=== PATIENT | female | born 1935 | race Caucasian/White ===

== ENCOUNTER 2018-10-15 14:30 | Emergency (ER) | payer MEDICARE ==
[~2018-10-15] VITALS: Ht 158.8 cm; Wt 79.0 kg
[~2018-10-15 14:30] MED LIST: ASA LO-DOSE81 MG OR; DEBROX6.5 % AS; DITROPAN PO; HYDROCHLOROT25 MG OR; LISINOP/HCTZ1 TA2 PO; MULTIVITAMI1 OR; TENORMIN25 MG OR; allo PO
[2018-10-15 15:17] LABS: HEMATOCRIT 37.9 % (37.0-47.0); HEMOGLOBIN 12.5 g/dl (12.0-16.0); IMMATURE GRANULOCYTES 0.3 % (0.0-5.0); MEAN CELL VOLUME 87.7 fL CALC (80.0-100.0); MEAN CORPUSCULAR HGB 28.9 pG CALC (26.0-32.0); NEUT# 9.92 thou/uL (2.00-7.15); RED BLOOD COUNT 4.32 mill/uL (4.20-5.60); RED CELL DISTRI WIDTH 14.4 % (11.5-15.5)
[2018-10-15 15:39] LABS: ALBUMIN 3.7 g/dL (3.2-5.0); ALKALINE PHOSPHATASE 84 u/l (38-126); ANION GAP 14 (6-22 (CALC)); BILIRUBIN, TOTAL 2.4 mg/dL (0.0-1.4); BUN 11 mg/dL (8-23); BUN/CREATININE RATIO 14 (12-20 (CALC)); CARBON DIOXIDE 25 mmol/l (22-30); CHLORIDE 104 mmol/l (95-108); CREATININE 0.8 mg/dL (0.5-1.0); GFR > 60 ML/MIN (>=60 (CALC)); GFR FOR AFR.AMER. > 60 ML/MIN (>=60 (CALC)); LIPASE 26 u/l (23-300); POTASSIUM 3.8 mmol/l (3.5-5.1); SGOT/AST 17 u/l (9-36); SODIUM 139 mmol/l (137-146); TOTAL PROTEIN 6.8 g/dL (6.3-8.2)
[2018-10-15 17:02] LABS: URINE BILIRUBIN - DIPSTICK NEGATIVE (NEGATIVE); URINE BLOOD DIPSTICK TRACE-INTACT (NEGATIVE); URINE COLOR YELLOW; URINE GLUCOSE - DIPSTICK NEGATIVE (NEGATIVE); URINE KETONE 40 mg/dL (NEGATIVE); URINE LEUK ESTERASE NEGATIVE (NEGATIVE); URINE NITRITE - DIPSTICK NEGATIVE (Negative); URINE PROTEIN - DIPSTICK TRACE mg/dL (NEG-TRACE); URINE SPECIFIC GRAVITY 1.025; URINE UROBILINOGEN - DIPSTICK 0.2 E.U./dL (0.2)
[2018-10-15] MEDS ORDERED: ONDANSETRON4 MG PO (17:38)
[2018-10-15 18:19] VITALS: BP 116/53
== END 2018-10-15 18:42 | disposition home or self-care (01) ==
LOC: ED 14:30
PROVIDERS: Family Medicine
DX: K52.9 Noninfective gastroenteritis and colitis, unspecified (principal); R10.13 Epigastric pain; R11.2 Nausea with vomiting, unspecified
CPT/HCPCS: Q9967

== ENCOUNTER 2018-10-21 14:21 | Observation (INO) | payer MEDICARE ==
[~2018-10-21] VITALS: Ht 160 cm; Wt 78.0 kg
[~2018-10-21 14:21] MED LIST changes: +ONDANSETRON4 MG PO
[2018-10-21 15:00] VITALS: BP 205/93
[2018-10-21 15:08] LABS: HEMATOCRIT 39.9 % (37.0-47.0); HEMOGLOBIN 13.1 g/dl (12.0-16.0); IMMATURE GRANULOCYTES 0.7 % (0.0-5.0); MEAN CELL VOLUME 86.9 fL CALC (80.0-100.0); MEAN CORPUSCULAR HGB 28.5 pG CALC (26.0-32.0); MEAN CORPUSCULAR HGB CONC 32.8 g/L CALC (32.0-36.0); NEUT# 10.58 thou/uL (2.00-7.15); RED BLOOD COUNT 4.59 mill/uL (4.20-5.60); RED CELL DISTRI WIDTH 14.2 % (11.5-15.5)
[2018-10-21 15:24] LABS: ANION GAP 15 (6-22 (CALC)); BUN 10 mg/dL (8-23); BUN/CREATININE RATIO 14 (12-20 (CALC)); CARBON DIOXIDE 26 mmol/l (22-30); CHLORIDE 100 mmol/l (95-108); CREATININE 0.7 mg/dL (0.5-1.0); GFR > 60 ML/MIN (>=60 (CALC)); GFR FOR AFR.AMER. > 60 ML/MIN (>=60 (CALC)); POTASSIUM 3.7 mmol/l (3.5-5.1); SODIUM 137 mmol/l (137-146)
[2018-10-21 16:09] VITALS: BP 164/65
[2018-10-21 17:05] VITALS: BP 138/75
[2018-10-21 18:36] VITALS: BP 147/77
[2018-10-21 19:23] VITALS: BP 111/60
[2018-10-21 21:38] LABS: URINE BILIRUBIN - DIPSTICK NEGATIVE (NEGATIVE); URINE BLOOD DIPSTICK TRACE-INTACT (NEGATIVE); URINE COLOR YELLOW; URINE GLUCOSE - DIPSTICK NEGATIVE (NEGATIVE); URINE KETONE NEGATIVE (NEGATIVE); URINE LEUK ESTERASE NEGATIVE (NEGATIVE); URINE NITRITE - DIPSTICK NEGATIVE (Negative); URINE PH 6.5 (4.5-8.0); URINE PROTEIN - DIPSTICK NEGATIVE (NEG-TRACE); URINE SPECIFIC GRAVITY <=1.005; URINE UROBILINOGEN - DIPSTICK 0.2 E.U./dL (0.2)
[2018-10-21 23:51] VITALS: BP 155/74
[2018-10-22] VITALS (7 sets, daily range): BP systolic 120–173; BP diastolic 43–84
[2018-10-22 02:43] LABS: HEMOGLOBIN 11.3 g/dl (12.0-16.0); IMMATURE GRANULOCYTES 0.7 % (0.0-5.0); MEAN CELL VOLUME 86.9 fL CALC (80.0-100.0); MEAN CORPUSCULAR HGB CONC 33.4 g/L CALC (32.0-36.0); NEUT# 9.88 thou/uL (2.00-7.15); RED BLOOD COUNT 3.89 mill/uL (4.20-5.60); RED CELL DISTRI WIDTH 14.4 % (11.5-15.5)
[2018-10-22 02:45] LABS: HEMATOCRIT 33.8 % (37.0-47.0)
[2018-10-22 02:57] LABS: ALKALINE PHOSPHATASE 116 u/l (38-126); ANION GAP 11 (6-22 (CALC)); BILIRUBIN, TOTAL 1.7 mg/dL (0.0-1.4); BUN 8 mg/dL (8-23); BUN/CREATININE RATIO 13 (12-20 (CALC)); CALCULATED LDLCHOLESTEROL 72 mg/dL (62-129 (CALC)); CARBON DIOXIDE 27 mmol/l (22-30); CHLORIDE 102 mmol/l (95-108); CHOLESTEROL HDL RATIO 3.7 (<4.4 (CALC)); CREATININE 0.6 mg/dL (0.5-1.0); GFR > 60 ML/MIN (>=60 (CALC)); GFR FOR AFR.AMER. > 60 ML/MIN (>=60 (CALC)); HDL CHOLESTEROL 32 mg/dL (>=40); POTASSIUM 3.8 mmol/l (3.5-5.1); SGOT/AST 29 u/l (9-36); SODIUM 136 mmol/l (137-146); TOTAL CHOLESTEROL 118 mg/dl (0-199); TOTAL PROTEIN 5.8 g/dL (6.3-8.2); TOTAL TRIGLYCERIDES 70 mg/dl (30-149); VLDL CHOLESTROL 14 mg/dl (0-48 (CALC))
[2018-10-22 03:01] LABS: ALBUMIN 2.8 g/dL (3.2-5.0)
[2018-10-23 04:30] VITALS: BP 156/82
[2018-10-23 07:00] LABS: HEMATOCRIT 35.7 % (37.0-47.0); HEMOGLOBIN 11.5 g/dl (12.0-16.0); IMMATURE GRANULOCYTES 0.7 % (0.0-5.0); MEAN CELL VOLUME 88.1 fL CALC (80.0-100.0); MEAN CORPUSCULAR HGB 28.4 pG CALC (26.0-32.0); MEAN CORPUSCULAR HGB CONC 32.2 g/L CALC (32.0-36.0); NEUT# 9.04 thou/uL (2.00-7.15); RED BLOOD COUNT 4.05 mill/uL (4.20-5.60); RED CELL DISTRI WIDTH 14.4 % (11.5-15.5)
[2018-10-23 07:15] LABS: ALBUMIN 2.6 g/dL (3.2-5.0); ALKALINE PHOSPHATASE 119 u/l (38-126); ANION GAP 7 (6-22 (CALC)); BILIRUBIN, TOTAL 1.1 mg/dL (0.0-1.4); BUN 6 mg/dL (8-23); BUN/CREATININE RATIO 8 (12-20 (CALC)); CARBON DIOXIDE 31 mmol/l (22-30); CHLORIDE 106 mmol/l (95-108); CREATININE 0.7 mg/dL (0.5-1.0); GFR > 60 ML/MIN (>=60 (CALC)); GFR FOR AFR.AMER. > 60 ML/MIN (>=60 (CALC)); POTASSIUM 3.4 mmol/l (3.5-5.1); SGOT/AST 15 u/l (9-36); SODIUM 140 mmol/l (137-146); TOTAL PROTEIN 5.5 g/dL (6.3-8.2)
[2018-10-23 07:51] VITALS: BP 159/69
[2018-10-23 11:20] VITALS: BP 175/92
[2018-10-23 15:25] VITALS: BP 137/47
[2018-10-23 19:08] VITALS: BP 151/78
[2018-10-24 00:12] VITALS: BP 146/72
[2018-10-24 04:25] VITALS: BP 143/81
[2018-10-24 08:17] VITALS: BP 172/71
[2018-10-24] MEDS ORDERED: LOPRESSOR25 MG PO (08:29)
[2018-10-24] MEDS ORDERED: LISINOPRIL20 M1 PO (08:29)
[2018-10-24 12:00] VITALS: BP 178/85
[2018-10-24 12:38] VITALS: BP 167/76
== END 2018-10-24 15:19 | disposition home or self-care (01) ==
LOC: MS2 14:21
PROVIDERS: ADMIT Internal Medicine Geriatric Medicine; ATTEND Internal Medicine Geriatric Medicine
DX: K57.32 Diverticulitis of large intestine without perforation or abscess without bleeding (principal); K50.10 Crohn's disease of large intestine without complications; K59.00 Constipation, unspecified; I10 Essential (primary) hypertension; I25.10 Atherosclerotic heart disease of native coronary artery without angina pectoris; K21.9 Gastro-esophageal reflux disease without esophagitis; Z96.642 Presence of left artificial hip joint; Z95.5 Presence of coronary angioplasty implant and graft; Z80.0 Family history of malignant neoplasm of digestive organs
CPT/HCPCS: Q9967

== ENCOUNTER → 2018-12-04 | Outpatient (REF) | payer MEDICARE ==
[~2018-12-04] VITALS: Ht 162.6 cm; Wt 79.4 kg
[~2018-12-04] MED LIST changes: +ASPIRIN EC325 MG PO; +B-12 TR1000 MCG PO; +D31000 UNI1 PO; +FISH OIL1000 M2 PO; +GAS RELIEF EXT125 MG PO; +GLUCOSAMINE CHO1 CA3 PO; +LISINOPRIL20 M1 PO; +LOPRESSOR25 MG PO; +NITROFURANTN100 MG PO; +SIMVASTATIN10 MG PO; +VITAMIN C1000 MG PO
[2018-12-04 11:39] VITALS: BP 142/68
== END | disposition home or self-care (01) ==
LOC: PO 10:57 → ORM 11:00
PROVIDERS: ATTEND Surgery
DX: Z01.818 Encounter for other preprocedural examination (principal); K29.80 Duodenitis without bleeding; K57.32 Diverticulitis of large intestine without perforation or abscess without bleeding; I25.10 Atherosclerotic heart disease of native coronary artery without angina pectoris; Z90.49 Acquired absence of other specified parts of digestive tract; Z96.652 Presence of left artificial knee joint; Z95.818 Presence of other cardiac implants and grafts; I69.354 Hemiplegia and hemiparesis following cerebral infarction affecting left non-dominant side; Z72.89 Other problems related to lifestyle

== ENCOUNTER 2018-12-11 08:33 | Day surgery (SDC) | payer MEDICARE ==
[~2018-12-11] VITALS: Ht 162.6 cm; Wt 79.4 kg
[2018-12-11 10:49] VITALS: BP 188/80
== END 2018-12-11 11:21 | disposition home or self-care (01) ==
LOC: ENDO 08:33 → ORM 11:15 → ENDO 11:21
PROVIDERS: ATTEND Surgery
PROC: 0DB68ZX Excision of Stomach, Via Natural or Artificial Opening Endoscopic, Diagnostic (ICD-10-PCS; principal; 2018-12-11)
PROC: 0DBL8ZX Excision of Transverse Colon, Via Natural or Artificial Opening Endoscopic, Diagnostic (ICD-10-PCS; 2018-12-11)
DX: K31.7 Polyp of stomach and duodenum (principal); K44.9 Diaphragmatic hernia without obstruction or gangrene; K63.5 Polyp of colon; K57.30 Diverticulosis of large intestine without perforation or abscess without bleeding; K64.4 Residual hemorrhoidal skin tags

== ENCOUNTER 2019-02-25 12:52 | Observation (INO) | payer MEDICARE ==
[~2019-02-25] VITALS: Ht 160 cm; Wt 77.0 kg
[2019-02-25 13:27] VITALS: BP 140/82
[2019-02-25 13:32] VITALS: BP 151/84
[2019-02-25 13:37] VITALS: BP 175/94
[2019-02-25 13:59] LABS: HEMATOCRIT 45.2 % (37.0-47.0); HEMOGLOBIN 14.3 g/dl (12.0-16.0); IMMATURE GRANULOCYTES 0.4 % (0.0-5.0); MEAN CELL VOLUME 90.9 fL CALC (80.0-100.0); MEAN CORPUSCULAR HGB 28.8 pG CALC (26.0-32.0); MEAN CORPUSCULAR HGB CONC 31.6 g/L CALC (32.0-36.0); NEUT# 5.7 thou/uL (2.00-7.15); RED BLOOD COUNT 4.97 mill/uL (4.20-5.60); RED CELL DISTRI WIDTH 13.8 % (11.5-15.5)
[2019-02-25 14:18] LABS: ALKALINE PHOSPHATASE 94 u/l (38-126); BILIRUBIN, TOTAL 1.1 mg/dL (0.0-1.4); BUN 12 mg/dL (8-23); BUN/CREATININE RATIO 14 (12-20 (CALC)); CALCULATED LDLCHOLESTEROL 104 mg/dL (62-129 (CALC)); CARBON DIOXIDE 28 mmol/l (22-30); CHLORIDE 108 mmol/l (95-108); CHOLESTEROL HDL RATIO 2.4 (<4.4 (CALC)); CREATININE 0.8 mg/dL (0.5-1.0); GFR > 60 ML/MIN (>=60 (CALC)); GFR FOR AFR.AMER. > 60 ML/MIN (>=60 (CALC)); HDL CHOLESTEROL 89 mg/dL (>=40); SGOT/AST 18 u/l (9-36); SODIUM 142 mmol/l (137-146); TOTAL TRIGLYCERIDES 93 mg/dl (30-149); VLDL CHOLESTROL 19 mg/dl (0-48 (CALC))
[2019-02-25 14:23] LABS: ALBUMIN 4.2 g/dL (3.2-5.0); ANION GAP 10 (6-22 (CALC)); POTASSIUM 4.3 mmol/l (3.5-5.1); TOTAL CHOLESTEROL 212 mg/dl (0-199); TOTAL PROTEIN 7.7 g/dL (6.3-8.2)
[2019-02-25 14:49] LABS: URINE BILIRUBIN - DIPSTICK NEGATIVE (NEGATIVE); URINE BLOOD DIPSTICK TRACE-INTACT (NEGATIVE); URINE COLOR YELLOW; URINE GLUCOSE - DIPSTICK NEGATIVE (NEGATIVE); URINE KETONE NEGATIVE (NEGATIVE); URINE PH 5.5 (4.5-8.0); URINE PROTEIN - DIPSTICK NEGATIVE (NEG-TRACE); URINE UROBILINOGEN - DIPSTICK 0.2 E.U./dL (0.2)
[2019-02-25 14:56] LABS: URINE LEUK ESTERASE SMALL (NEGATIVE); URINE NITRITE - DIPSTICK POSITIVE (Negative)
[2019-02-25 14:58] LABS: URINE BACTERIA MANY hpf; URINE SQUAMOUS EPITHELIAL CELL FEW EPI/hpf (0-FEW); URINE WBC 20-50 WBC/hpf (0-5)
[2019-02-25 15:19] VITALS: BP 167/69
[2019-02-25 15:53] VITALS: BP 155/73
[2019-02-25 19:40] VITALS: BP 135/86
[2019-02-26 03:42] VITALS: BP 156/89
[2019-02-26 05:39] LABS: ALBUMIN 3.7 g/dL (3.2-5.0); ALKALINE PHOSPHATASE 76 u/l (38-126); ANION GAP 12 (6-22 (CALC)); BILIRUBIN, TOTAL 1.2 mg/dL (0.0-1.4); BUN 11 mg/dL (8-23); BUN/CREATININE RATIO 15 (12-20 (CALC)); CARBON DIOXIDE 27 mmol/l (22-30); CHLORIDE 108 mmol/l (95-108); CREATININE 0.8 mg/dL (0.5-1.0); GFR > 60 ML/MIN (>=60 (CALC)); GFR FOR AFR.AMER. > 60 ML/MIN (>=60 (CALC)); POTASSIUM 4.1 mmol/l (3.5-5.1); SGOT/AST 17 u/l (9-36); SODIUM 142 mmol/l (137-146); TOTAL PROTEIN 6.8 g/dL (6.3-8.2)
[2019-02-26 09:32] VITALS: BP 156/70
[2019-02-26] MEDS ORDERED: ASPIRIN LOW DOS81 M1 PO (11:05)
[2019-02-26] MEDS ORDERED: LACTAID3000 UNIT PO (11:07)
[2019-02-26] MEDS ORDERED: TYLENOL325 MG PO (11:08)
[2019-02-26] MEDS ORDERED: [UNRECOGNIZED DRUG - OTHER] (11:09)
[2019-02-26] MEDS ORDERED: MYRBETRIQ25 MG (11:10)
[2019-02-26] MEDS ORDERED: STOOL SOFTENER100 MG PO (11:11)
[2019-02-26 16:02] VITALS: BP 150/53
[2019-02-26 19:55] VITALS: BP 129/69
[2019-02-27 04:45] VITALS: BP 188/84
[2019-02-27 09:02] VITALS: BP 186/78
[2019-02-27 11:34] VITALS: BP 176/91
[2019-02-27 15:03] VITALS: BP 120/64
== END 2019-02-27 16:41 ==
LOC: MS2 12:52
PROVIDERS: ADMIT Internal Medicine Geriatric Medicine; ATTEND Internal Medicine Geriatric Medicine
DX: R42 Dizziness and giddiness (principal); R53.1 Weakness; M25.551 Pain in right hip; I10 Essential (primary) hypertension; I25.10 Atherosclerotic heart disease of native coronary artery without angina pectoris; M19.90 Unspecified osteoarthritis, unspecified site; K21.9 Gastro-esophageal reflux disease without esophagitis; W19.XXXA Unspecified fall, initial encounter; Z96.652 Presence of left artificial knee joint; R82.71 Bacteriuria